=== PATIENT | female | born 1950 | race Hispanic/Latino ===

== ENCOUNTER → 2023-11-15 | Outpatient (CLI) | payer OTHER ==
[~2023-11-15] MED LIST: LISI20TA24 PO; PANT40TA54 PO; RALO60TA13 PO; nystatin TP
== END | disposition home or self-care (01) ==
LOC: RAH 14:35
PROVIDERS: ATTEND Family Medicine
DX: R01.1 Cardiac murmur, unspecified (principal)
CPT/HCPCS: 93306

== ENCOUNTER → 2025-01-29 | Outpatient (CLI) | payer OTHER ==
--- NOTE | 2025-01-30 13:00 | HMCIMG ---
EXAM: CT Cardiac calcium scoring. CLINICAL HISTORY: Screening. TECHNIQUE: Thin collimated axial CT cardiac images were obtained. A CT scan is done according to ALARA (As Low As Reasonably Achievable). CONTRAST: None. COMPARISON: None provided. FINDINGS: Calcium Score: VESSEL Number of lesions Volume mm3 Equi. Mass/mg Calcium score LM 0 0.0 - 0.0 LAD 3 23.6 - 33.3 LCX 0 0.0 - 0.0 RCA 2 449.6 - 511.1 Total 5 473.2 - 544.4 IMPRESSION: The total calcium score is 544.4. 89th percentile. Ectasia of the ascending aorta measuring 4.1 cm. /Skippers
== END | disposition home or self-care (01) ==
LOC: RAH 13:20
PROVIDERS: ATTEND Internal Medicine Cardiovascular Disease
DX: Z13.6 Encounter for screening for cardiovascular disorders (principal); R06.02 Shortness of breath; I77.810 Thoracic aortic ectasia
CPT/HCPCS: 75571